=== PATIENT | male | born 1965 | race Caucasian/White ===

== ENCOUNTER 2017-01-03 16:54 | Inpatient (IN) ==
[2017-01-03] MEDS ORDERED: HYDROmorphone 2 MG/1 ML VIAL IV STA (17:29)
[2017-01-03] MEDS ORDERED: HYDROmorphone 2 MG/1 ML VIAL ONE (18:11)
[2017-01-03] MEDS ORDERED: SODIUM CHLORIDE 0.9% 1,000 ML IV STA (18:31)
[2017-01-03 18:40] LABS: Basophils % 0.2 % (0.0-0.8); Eosinophils # 0.1 10*3/uL (0.0-0.87); Eosinophils % 0.5 % (0.00-10.9); Hematocrit 48.6 VOL% (42.0-52.0); Hemoglobin 16.3 GM/DL (14.0-18.0); Immature Granulocytes % 0.5 %; Immature Granulocytes Absolute 0.06 #; Lymphocytes # 1.8 10*3/uL (1.4-4.0); Mean Corpuscular HGB Conc 33.5 GM/DL (32-36); Mean Corpuscular Hemoglobin 29 PG (27-34); Mean Platelet Volume 9.8 FL (9.6-12.0); Monocytes # 1.6 10*3/uL (0.11-0.8); Monocytes % 12.4 % (1.7-12.7); Neutrophils # 9.4 10*3/uL (1.4-7.4); Neutrophils % 72.4 % (38.7-73.9); Platelet Count 187 T/CUMM (130-400); Red Blood Count 5.65 MC/CUMM (3.8-5.5); Red Cell Distribution Width 13.2 % (9.3-17.3)
[2017-01-03 18:45] LABS: Apearance,Urine CLEAR (Clear); Bilirubin,Urine Negative (Negative); Blood, Urine Moderate mg/dL (Negative); Glucose,Urine (UA) Negative (Negative); Ketones,Urine 20 mg/dL (Negative); Mucus,Urine Few /LPF (Occasional); Nitrite,Urine Negative (Negative); Protein,Urine 100 MG/DL; RBC,Urine 3 /HPF (0-4); Urine Color Yellow (Yellow); Urine Urobilinogen < 2.0 EU/DL (0.2-1.0); WBC,Urine 1 /HPF (0-6)
[2017-01-03 18:58] LABS: Lactic Acid 1.1 MMOL/L (0.4-2.0)
[2017-01-03 19:11] LABS: Albumin 3.3 G/DL (3.4-5.0); Bilirubin,Total 1.4 MG/DL (0.2-1.0); Calcium 8.6 MG/DL (8.5-10.1); Osmolality,Calculated 275.7 MOS/KG (273-304); Potassium 3.9 MMOL/L (3.5-5.1); Total Protein 6.2 G/DL (6.4-8.3)
--- NOTE | 2017-01-03 19:56 | XRay Report ---
XR chest 1V portable Indication: Shortness of breath, wheezing Comparison: 01 August 2012 Findings: The heart and mediastinum are stable in size and configuration. The pulmonary vascularity is slightly increased with bilateral increased interstitial lung density. Linear densities seen in the left lung base. No other other lung infiltrates, effusions, pneumothorax or other abnormality is demonstrated. Impression: Findings suggest mild cardiac decompensation. Linear left lower lung density may indicate atelectasis. PROCEDURE INTERPRETED AT [facility] DEPARTMENT OF RADIOLOGY Final Report Signed by: Dr. Alvarado Mae
--- NOTE | 2017-01-03 20:16 | Hospitalist History & Physical ---
Assessment and Plan (1) Abdominal mass Status: Acute Assessment and plan: This is a newly discovered abdominal mass the patient did not know of it. Most likely is the cause of the abdominal pain and nausea and vomiting. He is to be neoplastic in nature. There is no description of fluid content tended to suspect possibility of pancreatic pseudocyst. Patient denies history of pancreatitis because there is associated thickening of the stomach wall gastroenterology be the primary source for consultation at this time. Should also be consulted to medical oncology. I strongly recommend that the CT disc from [facility] be accessible to our radiology department for secondary reading. Patient will be admitted to a monitored bed on medical floor Current Visit: Yes Qualifiers: Abdominal location: epigastric Qualified Code(s): R19.06 - Epigastric swelling, mass or lump (2) Pancreatitis Status: Acute Assessment and plan: This most likely is associated with some mastitis on CT scan. Patient does have quite elevated amylase at this point and has been vomiting. He will be put n.p.o. Start the patient on parenteral peripheral nutrition 55 mL/h. Repeat lipase tomorrow. Current Visit: Yes Qualifiers: Chronicity: acute Pancreatitis type: unspecified pancreatitis type Acute pancreatitis complication: unspecified Qualified Code(s): K85.90 - Acute pancreatitis without necrosis or infection, unspecified (3) Acute abdominal pain Status: Acute Assessment and plan: Patient will be put on Dilaudid 1 mg IV every 3 hours as needed. Attention to the patient's blood pressure response and vital signs response to this dosing. Assist the patient in the morning for adequacy of pain management. Current Visit: Yes (4) Smoking addiction Status: Acute Assessment and plan: I have discussed with the patient quitting. At this point is not in the mind to accept it. More counseling is definitely going to be necessary. Outcome of treatment with this malignancy may be affected by discontinue smoking. Current Visit: Yes (5) Hypertension Status: Acute Assessment and plan: Since he is not on any medication I will gingerly start him on amlodipine 5 mg daily. Avoid JESSI inhibitors in the face of pancreatitis. Reassess blood pressures along the way at least twice a shift. Current Visit: Yes History of Present Illness Chief complaint: Abdominal pain nausea vomiting shortness of breath History of present illness: Mr. Mitchell is a 51 year old male ith PMHx of HTN, who was transferred from [facility] for further evaluation of an Abd mass. Pt c/o of cramping Abd pain since 6 days and no BM since 12/31/2016. Pt states the pain radiates from the ribs to the back and is accompanied by Nausea. Pt received morphine at [facility] but did not help with pain. Pt denies hematochezia and dysuria. Pt reports tobacco 1 pack a day lately but he just smoked as much as 3 packs a day and had been smoking since age of 11; Occasional EtOH As regard to his hypertension he claims he is well controlled. Patient states that he is not taking medications because he voluntarily lost weight and since then his blood pressure has been good. Does acknowledge having had yellow eyes up to about last week. Denies any itching. Never had an abdominal pain until current events. No history of pancreatitis in the a.m. or in the family. Has had a history of ulcers which were treated years ago. He does seem to remember having had an infection associated with that. This is so because I specifically asked the question if there was H. pylori involved. Patient is not currently jaundiced. He is however with a cough that is nonproductive and there is some background wheezing. Allergies Allergy/AdvReac Type Severity Reaction Status Date / Time codeine Allergy Unknown/Unable Verified 01/03/17 17:08 to obtain Medical,Surgical,& Family Hx - Medical History Cardio: History of: Hypertension Gastrointestinal: History of: GI Problems (Because of disease in the past) - Family History Additional Family History: History of peptic ulcer disease in multiple members of the family. - Social History Smoking Status: Current every day smoker Frequency of Alcohol Use: None Type of Drug Use: None Review of systems: A 12 point system was attended to. Patient's review of systems significant for the chief complaint and past medical history. At this point he still having a lot of intra-abdominal pain especially periumbilical on the epigastrium. Has had some events of nausea he also noticed that his short winded he has a background wheeze though he does not have any history of asthma. EKG has been done has a nonspecific ST-T changes with his voltage criteria for left ventricular hypertrophy but patient also does have history of hypertension with an S4 gallop on auscultation as will be mentioned below Exam - Constitutional Vitals: Period Temp Pulse Resp BP Sys/Mathews Pulse Ox Last 24 Hr 97.6 F-97.6 F 118-127 18-18 150-164/101-111 91-96 General appearance: normal weight, no acute distress - Head Head exam: Present: normal inspection, normocephalic, atraumatic - Eye Eye exam: Present: EOMI, other (Anicteric sclera no conjunctival petechia) Pupils: Present: LARISA - ENT ENT exam: Present: normal exam, normal oropharynx - Neck Neck exam: Present: normal inspection, other (Supple no jugular venous distention no regional adenopathy in the neck or supraclavicular region) - Respiratory Respiratory exam: Present: other (Noted paroxysmal coughing with some wheezing in the background. There is no rales chest x-ray shows prominent blood vessels with some cephalization) - Cardiovascular Cardiovascular exam: Present: regular rate and rhythm, other (Presence of S4 gallop) - GI/Abdominal GI/Abdominal exam: Present: normal bowel sounds, soft, other (Tender to palpation especially in the epigastrium and periumbilical areas do not feel any adenopathy in the periumbilical area) - Extremities Exam Extremities exam: Present: full ROM - Back Exam Back exam: Present: normal inspection - Neurological Exam Neurological exam: Present: alert, oriented X3, CN II-XII intact - Psychiatric Psychiatric exam: Present: normal affect, normal mood - Skin Skin exam: Present: normal color, warm, dry Results - Labs CBC & BMP: 01/03/17 18:23 01/03/17 18:23 Lab Results: I have reviewed the past 24 hour labs (Patient has a lipase of 1294 most likely an element of pancreatitis he denied prior history of pancreatitis. Bilirubin of 1.4 transaminases are normal from the previous hospital white count of 15,072% neutrophils 14% lymphocytes he has a grown hemoglobin of 16.3 (smoker)) - EKG EKG shows: sinus rhythm (Rate is normal. Does have nonspecific ST-T abnormalities and suggestion of delayed ventricular repolarization..) - Diagnostic Findings Procedure: Chest x-ray: image reviewed by me (Prominent heart silhouette with cephalization of blood vessels), CT: report reviewed by me (CT scan shows a peripancreatic inflammatory changes. Most prominent proximally. Posterior wall of the stomach appears thickened. There is no abnormal acute abnormality of the liver gallbladder spleen there is asymmetric thickening of the left adrenal gland no hydronephrosis there are mildly dilated small bowel loops without visualized discrete transition site. Colonic diverticulosis is noted no evidence of appendicitis. No abdominal aortic aneurysm incidental finding of referred containing right inguinal hernia was also noted. There is also an incidental finding over a urinary bladder diverticulum. (The CT scan was done at [facility]).)
[2017-01-03] MEDS ORDERED: AMINO ACIDS/DEXT/LYTES 4.25-5% 2,000 ML IV SCH (21:00)
[2017-01-03] MEDS: HYDROmorphone 2 MG/1 ML VIAL IV PRN (21:03)
[2017-01-03] MEDS: amLODIPine 5 MG TABLET PO SCH (21:05)
[2017-01-03] MEDS: HEPARIN 5,000 UNIT/1 ML VIAL SUBCUT SCH (23:56)
[2017-01-04] MEDS: HYDROmorphone 2 MG/1 ML VIAL IV PRN ×6 (00:05→23:01)
[2017-01-04 05:41] LABS: Basophils % 0.4 % (0.0-0.8); Eosinophils # 0.2 10*3/uL (0.0-0.87); Hematocrit 46.3 VOL% (42.0-52.0); Hemoglobin 15.2 GM/DL (14.0-18.0); Immature Granulocytes % 0.3 %; Immature Granulocytes Absolute 0.02 #; Lymphocytes # 1.4 10*3/uL (1.4-4.0); Lymphocytes % 18.1 % (21.2-54.2); Mean Corpuscular HGB Conc 32.8 GM/DL (32-36); Mean Corpuscular Hemoglobin 28 PG (27-34); Mean Corpuscular Volume 85.3 FL (87-102); Mean Platelet Volume 10.3 FL (9.6-12.0); Monocytes # 1.4 10*3/uL (0.11-0.8); Monocytes % 18.2 % (1.7-12.7); Neutrophils # 4.7 10*3/uL (1.4-7.4); Platelet Count 173 T/CUMM (130-400); Red Blood Count 5.43 MC/CUMM (3.8-5.5); Red Cell Distribution Width 13.3 % (9.3-17.3); White Blood Count 7.7 T/CUMM (4-12)
[2017-01-04 06:03] LABS: Band Neutrophils 8 % (0-10); Eosinophils 2 % (0-10); Lymphocytes 19 % (20-55); Platelet Estimate Normal; Segmented Neutrophils 60 % (50-85); Total Cells Counted 100
[2017-01-04 06:04] LABS: Hypochromasia Slight
[2017-01-04] MEDS: HEPARIN 5,000 UNIT/1 ML VIAL SUBCUT SCH ×3 (06:09→20:14)
[2017-01-04 06:21] LABS: Albumin 2.9 G/DL (3.4-5.0); Bilirubin,Total 1.3 MG/DL (0.2-1.0); Calcium 8.1 MG/DL (8.5-10.1); Magnesium 2.4 MG/DL (1.8-2.4); Osmolality,Calculated 279.4 MOS/KG (273-304); Potassium 4.1 MMOL/L (3.5-5.1); Total Protein 5.7 G/DL (6.4-8.3)
--- NOTE | 2017-01-04 07:26 | EKG Report ---
Stationary ECG Study [facility] ER Test Date: 01/03/2017 7:23:20 PM Pat Name: GOVIND ZHU Department: Room: 218 Gender: M File Clerk Data Entry: NANCI : [id number] Requested by: Farrukh Gibbons Order Number: [id number] Reading MD: TAVO GUERRA Intervals [place] Rate: 118 P: 51 ND: 173 QRS: 4 QRSD: 100 T: 58 QT: 320 QTc: 390 Interpretive Statements SINUS TACHYCARDIA NONSPECIFIC T-WAVE ABNORMALITY Electronically Signed On 01-04-17 16:52:34 CDT by TAVO GUERRA [email or web address]
[2017-01-04] MEDS: PANTOPRAZOLE 40 MG VIAL IV SCH (08:59)
[2017-01-04] MEDS: amLODIPine 5 MG TABLET PO SCH (08:59)
--- NOTE | 2017-01-04 10:33 | Hospitalist Progress Note ---
Assessment and Plan - Time spent with patient Time spent with patient: Greater than 30 minutes (1) Abdominal mass Status: Acute Assessment and plan: CT done at [facility] revealed abdominal mass. GI and Oncology consulted. Current Visit: Yes Qualifiers: Abdominal location: epigastric Qualified Code(s): R19.06 - Epigastric swelling, mass or lump (2) Pancreatitis Status: Acute Assessment and plan: Patient was started on TPN yesterday by admitting physician. Lipase has reduced. Current Visit: Yes Qualifiers: Chronicity: acute Pancreatitis type: unspecified pancreatitis type Acute pancreatitis complication: unspecified Qualified Code(s): K85.90 - Acute pancreatitis without necrosis or infection, unspecified Hospitalist: Subjective Interval history: No complaints or overnight events. Exam - Constitutional Vitals: Period Temp Pulse Resp BP Sys/Mathews Pulse Ox Last 24 Hr 98.3 F-98.7 F 86-116 16-20 150-164/89-105 92-97 General appearance: normal weight, no acute distress - Head Head exam: Present: normocephalic, atraumatic - Eye Eye exam: Present: EOMI Pupils: Present: LARISA - ENT ENT exam: Present: normal exam - Neck Neck exam: Present: normal inspection - Respiratory Respiratory exam: Present: clear to auscultation bilaterally. Absent: accessory muscle use, prolonged expiratory phase, rhonchi, wheezes - Cardiovascular Cardiovascular exam: Present: regular rate and rhythm. Absent: gallop, rubs, systolic murmur - GI/Abdominal GI/Abdominal exam: Present: normal bowel sounds, soft. Absent: distended, firm , guarding, tenderness, rebound - Extremities Exam Extremities exam: Present: normal inspection. Absent: calf tenderness, edema Results - Labs CBC & BMP: 01/04/17 04:56 01/04/17 04:56 Lab Results: I have reviewed the past 24 hour labs
--- NOTE | 2017-01-04 14:29 | Gastrointestinal Consult Note ---
Assessment and Plan (1) Acute abdominal pain Status: Acute Assessment and plan: 01/04-sudden onset of abdominal pain with nausea/vomiting with findings at outside facility of questionable abdominal mass, unable to view any imaging/ reports. Elevated lipase levels now trending downward. Started on TPN. Bilirubin 1.3. Plan an addendum to followed by Dr. Peña. Current Visit: Yes History of Present Illness Chief complaint: Abdominal mass History of present illness: Mr. Mitchell is a 51 year old male who was admitted to the hospital with sudden onset of abdominal pain, nausea and vomiting. Patient states that on last he was not feeling very well had a sudden onset of intractable nausea and vomiting. He states that this lasted throughout the day however stopped just as suddenly as it started. He denies any coffee-ground or hematemesis associated with this. He reports that shortly after the nausea vomiting stopped , he had an onset of severe diffuse abdominal pain. He states the pain wavered in intensity and was severe at times and was not associated with any known factors. He states that he has not eaten anything since due to the nausea and vomiting followed by the pain. He he presented to [facility] for further evaluation at that time. He is reported to have a CT scan of the abdomen done at [facility] with findings that were reported as an abdominal mass. Patient states that he was told at the outside facility that it was actually a pancreatic mass. There is currently no films to review our reports from the CT noted in the database at present time. There is also no current imaging noted from our facility at this time. Patient denies any recent weight loss, fever, chills, or are night sweats. He denies any recent melena or hematochezia. Patient was found to have a lipase level of 1294 on admission. He states he has no prior history of pancreatitis in the past. He denies any routine alcohol use and states that he has only socially used alcohol but not very often in the past. He smokes a pack of cigarettes every other day. He has started smoking when he was 11 years old and until recently smoked 3-4 packs a day. Patient states he has not had a bowel movement since . His lipase is trended down today at 560 today when he was started on TPN on admission. Bilirubin noted at 1.3 with normal transaminases. CEA noted to be negative. Patient has a history of endoscopy in the past, years ago, by Dr. Kim with history of PUD. Oncology was noted to be consulted on admission. Home Medications Medication Instructions Recorded Confirmed Type No Known Home Medications [No 01/04/17 01/04/17 History Known Home Medications] Allergies Allergy/AdvReac Type Severity Reaction Status Date / Time codeine Allergy Unknown/Unable Verified 01/03/17 17:08 to obtain Medical,Surgical,& Family Hx - Medical History Cardio: History of: Hypertension Gastrointestinal: History of: GI Problems (Because of disease in the past) - Social History Smoking Status: Current every day smoker Frequency of Alcohol Use: None Type of Drug Use: None 12 point system: reviewed and no additional remarkable complaints except as stated - Constitutional Constitutional: Present: as per HPI - EENT Eyes: Present: as per HPI Ears: Present: as per HPI Nose, mouth and throat: Present: as per HPI - Cardiovascular Cardiovascular: Present: as per HPI - Respiratory Respiratory: Present: as per HPI - Gastrointestinal Gastrointestinal: Present: as per HPI, abdominal pain, nausea, vomiting - Genitourinary Genitourinary: Present: as per HPI - Musculoskeletal Musculoskeletal: Present: as per HPI - Neurological Neurological: Present: as per HPI - Psychiatric Psychiatric: Present: as per HPI - Endocrine Endocrine: Present: as per HPI - Hematologic/Lymphatic Hematologic/Lymphatic: Present: as per HPI Exam - Constitutional Vitals: Period Temp Pulse Resp BP Sys/Mathews Pulse Ox Last 24 Hr 98.3 F-98.7 F 86-116 16-20 138-164/88-105 92-97 General appearance: normal weight, no acute distress - Head Head exam: Present: normal inspection, normocephalic - Eye Eye exam: Present: other (Lids and conjunctive are unremarkable). Absent: scleral icterus - ENT ENT exam: Present: normal exam, normal oropharynx - Neck Neck exam: Present: normal inspection - Respiratory Respiratory exam: Present: clear to auscultation bilaterally. Absent: rales, rhonchi, wheezes - Cardiovascular Cardiovascular exam: Present: regular rate and rhythm. Absent: diastolic murmur , JVD, systolic murmur - GI/Abdominal GI/Abdominal exam: Present: normal bowel sounds, tenderness (Upper quadrant, mostly left upper quadrant), soft. Absent: ascites, distended, mass, organomegaly - Extremities Exam Extremities exam: Present: normal inspection, full ROM - Back Exam Back exam: Present: normal inspection - Neurological Exam Neurological exam: Present: alert, oriented X3 - Psychiatric Psychiatric exam: Present: normal affect, normal mood - Skin Skin exam: Present: normal color, warm, dry Results - Labs CBC & BMP: 01/04/17 04:56 01/04/17 04:56 Lab Results: I have reviewed the past 24 hour labs
[2017-01-04 14:51] LABS: Cancer Antigen 19-9 31.5 U/ML (0-37)
--- NOTE | 2017-01-04 16:14 | Oncology Consult Note ---
Assessment and Plan - Time spent with patient Time spent with patient: Greater than 30 minutes (1) Abdominal mass Status: Acute Assessment and plan: I will order an IV and p.o. contrasted CT of the abdomen and pelvis for complete workup. He will likely also need upper endoscopy by GI at some point in the near future. I will follow the results of the scan and GIs evaluation and make further recommendations at that time. Current Visit: Yes Qualifiers: Abdominal location: epigastric Qualified Code(s): R19.06 - Epigastric swelling, mass or lump (2) Pancreatitis Status: Acute Current Visit: Yes Qualifiers: Chronicity: acute Pancreatitis type: unspecified pancreatitis type Acute pancreatitis complication: unspecified Qualified Code(s): K85.90 - Acute pancreatitis without necrosis or infection, unspecified (3) Acute abdominal pain Status: Acute Current Visit: Yes History of Present Illness History of present illness: Mr. Mitchell is a 51 year old male who was transferred from [facility] after presenting with diffuse abdominal pain with a CT scan showing a questionable gastric mass. The gastric mass arises from the posterior antrum. There is also some mention of pancreatitis with inflammation in the area between the pancreas and the stomach. The CT scan was done without IV contrast. He does have an elevated lipase. CEA, CA-19-9, and alpha- fetoprotein are all within normal limits. GI has seen him. His main complaint is diffuse abdominal pain. I explained to him that we need to do a contrasted CT scan along with upper endoscopy. We get then make better recommendations once the initial workup is done. Home Medications Medication Instructions Recorded Confirmed Type No Known Home Medications [No 01/04/17 01/04/17 History Known Home Medications] Allergies Allergy/AdvReac Type Severity Reaction Status Date / Time codeine Allergy Unknown/Unable Verified 01/03/17 17:08 to obtain Medical,Surgical,& Family Hx - Medical History Cardio: History of: Hypertension Gastrointestinal: History of: GI Problems (Because of disease in the past) - Social History Smoking Status: Current every day smoker Frequency of Alcohol Use: None Type of Drug Use: None 12 point system: reviewed and no additional remarkable complaints except as stated - Constitutional Constitutional: Absent: fatigue, fever(s), malaise, weakness - Gastrointestinal Gastrointestinal: Present: abdominal pain, early satiety, nausea Exam - Constitutional Vitals: Period Temp Pulse Resp BP Sys/Mathews Pulse Ox Last 24 Hr 98.3 F-98.7 F 86-116 16-20 128-164/76-105 92-97 General appearance: normal weight, no acute distress - Head Head Exam: Present: normocephalic - Eye Eye Exam: Present: EOMI Pupils: Present: PERRL - Neck Neck exam: Absent: lymphadenopathy, thyromegaly - Respiratory Respiratory exam: Present: CTAB. Absent: wheezes - Cardiovascular Cardiovascular exam: Present: RRR. Absent: irregular rhythm, JVD - GI/Abdominal GI/Abdominal exam: Present: tenderness, soft. Absent: ascites, distended, firm , mass - Neurological Exam Neurological exam: Present: alert, oriented X3 - Psychiatric Psychiatric exam: Present: normal affect, normal mood - Skin Skin exam: Present: warm, dry Results - Labs CBC & BMP: 01/04/17 04:56 01/04/17 04:56 Lab Results: I have reviewed the past 24 hour labs - Diagnostic Findings Procedure: CT Abdomen and Pelvis: report reviewed by me
--- NOTE | 2017-01-04 19:43 | CT Report ---
CT abdomen pelvis Indication: Gastric mass Comparison: 03 Jan 2017 Technique: Axial CT imaging of the abdomen and pelvis is performed with intravenous and oral contrast. Contrast dose is 100 cc of Omnipaque 350. Findings: Cardiac and lung bases are within normal limits CT abdomen: The liver spleen and adrenal glands are normal in size and enhancement. No evidence of focal lesion is demonstrated in these solid organs. There is fluid and stranding around the aorta body of the pancreas and in the lesser sac Simple appearing renal cyst are present similar previous CT that do not enhance. Otherwise the are normal in size and enhancement. No evidence of hydronephrosis or nephrolithiasis is seen. The bowel caliber is normal and no wall thickening or adjacent inflammatory change is seen. No evidence of free fluid or free air is present. Appendix appears normal. CT pelvis: Multiple diverticula are present in the sigmoid colon without evidence of diverticulitis pelvic bowel appears within normal limits. Bladder shows no evidence of abnormality. The pelvic organs show no evidence of abnormality Impression: Fluid and stranding around the pancreas body with fluid in the lesser sac, likely pancreatitis and developing pseudocysts. No distinct mass is identified. This CT exam was performed using one or more the following dose reduction techniques: Automated exposure control, adjustment of the MA and/or KV according to patient size, or use of iterative reconstruction technique. PROCEDURE INTERPRETED AT [facility] DEPARTMENT OF RADIOLOGY Final Report Signed by: Dr. Alvarado Mae
[2017-01-05] MEDS: HYDROmorphone 2 MG/1 ML VIAL IV PRN ×7 (02:19→23:53)
[2017-01-05] MEDS: HEPARIN 5,000 UNIT/1 ML VIAL SUBCUT SCH ×3 (04:39→20:30)
[2017-01-05 05:34] LABS: AFP Tumor < 1.3 NG/ML (0-8); Prostate Specific Antigen Diag 0.5 NG/ML (0-4)
[2017-01-05 05:47] LABS: Basophils % 0.2 % (0.0-0.8); Eosinophils # 0.2 10*3/uL (0.0-0.87); Eosinophils % 2.6 % (0.00-10.9); Hematocrit 44.9 VOL% (42.0-52.0); Hemoglobin 14.9 GM/DL (14.0-18.0); Immature Granulocytes % 0.2 %; Immature Granulocytes Absolute 0.02 #; Lymphocytes # 2.1 10*3/uL (1.4-4.0); Lymphocytes % 24.8 % (21.2-54.2); Mean Corpuscular HGB Conc 33.2 GM/DL (32-36); Mean Corpuscular Hemoglobin 28 PG (27-34); Mean Platelet Volume 10.3 FL (9.6-12.0); Monocytes # 1.2 10*3/uL (0.11-0.8); Monocytes % 13.9 % (1.7-12.7); Neutrophils # 4.9 10*3/uL (1.4-7.4); Neutrophils % 58.3 % (38.7-73.9); Platelet Count 225 T/CUMM (130-400); Red Blood Count 5.28 MC/CUMM (3.8-5.5); White Blood Count 8.5 T/CUMM (4-12)
[2017-01-05 06:16] LABS: Calcium 8.6 MG/DL (8.5-10.1); Osmolality,Calculated 277.5 MOS/KG (273-304); Potassium 4.3 MMOL/L (3.5-5.1)
--- NOTE | 2017-01-05 08:06 | Oncology Progress Note ---
Assessment and Plan (1) Pancreatitis Status: Acute Current Visit: Yes Qualifiers: Chronicity: acute Pancreatitis type: unspecified pancreatitis type Acute pancreatitis complication: unspecified Qualified Code(s): K85.90 - Acute pancreatitis without necrosis or infection, unspecified (2) Acute abdominal pain Status: Acute Current Visit: Yes Oncology Subjective PN Interval history: Mr. Mitchell's contrasted CT yesterday showed no evidence of a gastric or abdominal mass. There was pancreatic inflammation with likely pseudocyst identified. There is no further need for oncology workup. I will defer the question about the need for evaluation with EGD to GI. I will sign off for now. Please call me if there are any questions. Exam - Constitutional Vitals: Period Temp Pulse Resp BP Sys/Mathews Pulse Ox Last 24 Hr 96.9 F-99.2 F 102-112 18-20 128-148/76-87 96-97 Results - Labs CBC & BMP: 01/05/17 05:13 01/05/17 05:13 Lab Results: I have reviewed the past 24 hour labs
[2017-01-05] MEDS: PANTOPRAZOLE 40 MG VIAL IV SCH (08:39)
--- NOTE | 2017-01-05 09:44 | Hospitalist Progress Note ---
Assessment and Plan - Time spent with patient Time spent with patient: Greater than 30 minutes (1) Pancreatitis Status: Acute Assessment and plan: Lipase increased today. Mild low grade fevers from pancreatitis. Start fluids, increase pain meds and add phenergan. CT abdomen revealed a pancreatic pseudocyst. Obtain RUQ US and Lipid panel/ Current Visit: Yes Qualifiers: Chronicity: acute Pancreatitis type: unspecified pancreatitis type Acute pancreatitis complication: unspecified Qualified Code(s): K85.90 - Acute pancreatitis without necrosis or infection, unspecified Hospitalist: Subjective Interval history: Complains of continued abdominal pain, diffuse and crampy radiating to the back. N/V. Exam - Constitutional Vitals: Period Temp Pulse Resp BP Sys/Mathews Pulse Ox Last 24 Hr 96.9 F-99.2 F 102-112 18-20 128-148/76-87 96-97 General appearance: no acute distress - Head Head exam: Present: normocephalic, atraumatic - Eye Eye exam: Present: EOMI Pupils: Present: LARISA - ENT ENT exam: Present: normal exam - Neck Neck exam: Present: normal inspection - Respiratory Respiratory exam: Present: clear to auscultation bilaterally. Absent: rhonchi, wheezes - Cardiovascular Cardiovascular exam: Present: regular rate and rhythm. Absent: gallop, rubs, systolic murmur - GI/Abdominal GI/Abdominal exam: Present: normal bowel sounds, soft. Absent: distended, firm , guarding, tenderness, rebound - Extremities Exam Extremities exam: Present: normal inspection. Absent: calf tenderness, edema Results - Labs CBC & BMP: 01/05/17 05:13 01/05/17 05:13 Lab Results: I have reviewed the past 24 hour labs
[2017-01-05 10:12] LABS: Risk Ratio 3.36; VLDL CHOLESTEROL 19.4 MG/DL
--- NOTE | 2017-01-05 10:32 | Gastrointestinal Progress Note ---
Assessment and Plan (1) Acute abdominal pain Status: Acute Assessment and plan: 01/05-Abd pain increased today. Lipase levels increase today at 1347. Afebrile. CT findings noted of pancreatitis/possible pseudocyst. Plan and addendum to follow by Dr Peña. 01/04-sudden onset of abdominal pain with nausea/vomiting with findings at outside facility of questionable abdominal mass, unable to view any imaging/ reports. Elevated lipase levels now trending downward. Started on TPN. Bilirubin 1.3. Plan an addendum to followed by Dr. Peña. Current Visit: Yes Gastroenterology - PN: Subj Interval history: CC: Abdominal pain Patient is seen awake and alert sitting up in chair. States he is not feeling well this morning. Complaining of increased abdominal pain radiating to his back. Denies any nausea or vomiting at present time. Patient is afebrile with no leukocytosis noted at this time. Lipase is elevated at 1347. Findings on contrasted CT scan noted with fluid and stranding around pancreas body with fluid in the lesser sac with possible developing pseudocyst and no distinct mass seen. Multiple diverticuli in sigmoid colon as well. His TPN is noted to be discontinued last night and remains discontinued this morning. He is to have IV fluids restarted today and he is far abdominal ultrasound as well as lipid panel pending at present time. Abdomen is soft, tender to palpation. ROS: Denies shortness of breath or chest pain Exam (Progress Note) - Constitutional Vitals: Period Temp Pulse Resp BP Sys/Mathews Pulse Ox Last 24 Hr 96.9 F-99.2 F 102-112 18-20 128-148/76-89 96-97 - Other Additional findings: General appearance: normal weight, no acute distress - Head Head exam: Present: normal inspection, normocephalic - Eye Eye exam: Present: other (Lids and conjunctive are unremarkable). Absent: scleral icterus - ENT ENT exam: Present: normal exam, normal oropharynx - Neck Neck exam: Present: normal inspection - Respiratory Respiratory exam: Present: clear to auscultation bilaterally. Absent: rales, rhonchi, wheezes - Cardiovascular Cardiovascular exam: Present: regular rate and rhythm. Absent: diastolic murmur , JVD, systolic murmur - GI/Abdominal GI/Abdominal exam: Present: normal bowel sounds, tenderness (Upper quadrant, mostly left upper quadrant), soft. Absent: ascites, distended, mass, organomegaly - Extremities Exam Extremities exam: Present: normal inspection, full ROM - Back Exam Back exam: Present: normal inspection - Neurological Exam Neurological exam: Present: alert, oriented X3 - Psychiatric Psychiatric exam: Present: normal affect, normal mood - Skin Skin exam: Present: normal color, warm, dry Results - Labs CBC & BMP: 01/05/17 05:13 01/05/17 05:13 Lab Results: I have reviewed the past 24 hour labs - Diagnostic Findings Procedure: CT Abdomen and Pelvis: report reviewed by me
[2017-01-05] MEDS: SODIUM CHLORIDE 0.45% 1,000 ML IV SCH ×5 (11:16→23:52)
[2017-01-05] MEDS: PROMETHAZINE INJ 12.5 MG in SODIUM CHLORIDE 0.9% 50 ML IV PRN ×2 (11:25→20:30)
--- NOTE | 2017-01-05 12:59 | Ultrasound Report ---
Exam: US right upper quadrant Date:01/05/2017 9:45 AM Indication: Pancreatitis Comparison: None Findings: Liver: Fatty infiltration of liver is present. The liver measuring approximate 17 cm. No focal abnormalities are present. The hepatic and portal veins are patent. Gallbladder: Normal size shape and configuration without stones CBD: 6 mm Pancreas: Poorly visualized Kidneys Right kidney: 11.8 x 6.2 x 5.5 cm. There is a 2.9 x 2.8 x 3.3 cm cyst in the midpole the right kidney. Left kidney: Not evaluated Aorta IVC: No obvious aneurysm. IVC is patent. Spleen: Not evaluated Ascites: None Impression: 1. Mild fatty infiltration of the liver 2. Simple cyst of the right kidney measuring 2.9 cm. Ultrasound images were stored and captured PROCEDURE INTERPRETED AT [facility] DEPARTMENT OF RADIOLOGY Final Report Signed by: Dr. Stew Diehl
[2017-01-05] MEDS: amLODIPine 5 MG TABLET PO SCH (14:28)
[2017-01-06] MEDS: HYDROmorphone 2 MG/1 ML VIAL IV PRN ×4 (03:06→12:26)
[2017-01-06] MEDS: SODIUM CHLORIDE 0.45% 1,000 ML IV SCH ×3 (03:07→20:08)
[2017-01-06] MEDS: HEPARIN 5,000 UNIT/1 ML VIAL SUBCUT SCH ×3 (06:14→20:07)
[2017-01-06] MEDS: amLODIPine 5 MG TABLET PO SCH (09:21)
[2017-01-06] MEDS: PANTOPRAZOLE 40 MG VIAL IV SCH (09:21)
[2017-01-06] MEDS: PROMETHAZINE INJ 12.5 MG in SODIUM CHLORIDE 0.9% 50 ML IV PRN (09:22)
--- NOTE | 2017-01-06 10:16 | Hospitalist Progress Note ---
Assessment and Plan - Time spent with patient Time spent with patient: Greater than 30 minutes (1) Pancreatitis Status: Acute Assessment and plan: Triglycerides and right upper quadrant unremarkable. Lipase improved today. Continue fluids. N.p.o. Defer change in management to GI. Appreciate their assistance. Current Visit: Yes Qualifiers: Chronicity: acute Pancreatitis type: unspecified pancreatitis type Acute pancreatitis complication: unspecified Qualified Code(s): K85.90 - Acute pancreatitis without necrosis or infection, unspecified Hospitalist: Subjective Interval history: Reports continued pain. States he feels bad however looks much more comfortable. Patient apparently leaves the floor and smokes downstairs. Exam - Constitutional Vitals: Period Temp Pulse Resp BP Sys/Mathews Pulse Ox Last 24 Hr 96.3 F-98.3 F 97-105 18-20 141-166/85-96 95-98 General appearance: no acute distress - Head Head exam: Present: normocephalic, atraumatic - Eye Eye exam: Present: EOMI Pupils: Present: LARISA - ENT ENT exam: Present: normal exam - Neck Neck exam: Present: normal inspection - Respiratory Respiratory exam: Present: clear to auscultation bilaterally. Absent: rhonchi, wheezes - Cardiovascular Cardiovascular exam: Present: regular rate and rhythm. Absent: gallop, rubs, systolic murmur - GI/Abdominal GI/Abdominal exam: Present: normal bowel sounds, tenderness, soft. Absent: distended, firm, guarding, rebound - Extremities Exam Extremities exam: Present: normal inspection. Absent: calf tenderness, edema Results - Labs CBC & BMP: 01/05/17 05:13 01/05/17 05:13 Lab Results: I have reviewed the past 24 hour labs
--- NOTE | 2017-01-06 10:59 | Gastrointestinal Progress Note ---
Assessment and Plan (1) Acute abdominal pain Status: Acute Assessment and plan: 01/06-Continued abd pain, denies nausea or vomiting. Lipase 1102. Afebrile. Plan and addendum to follow by DR Peña. 01/05-Abd pain increased today. Lipase levels increase today at 1347. Afebrile. CT findings noted of pancreatitis/possible pseudocyst. Plan and addendum to follow by Dr Peña. 01/04-sudden onset of abdominal pain with nausea/vomiting with findings at outside facility of questionable abdominal mass, unable to view any imaging/ reports. Elevated lipase levels now trending downward. Started on TPN. Bilirubin 1.3. Plan an addendum to followed by Dr. Peña. Current Visit: Yes Gastroenterology - PN: Subj Interval history: CC: Pancreatitis Pt is seen, awake and alert sitting on side of bed. States he is feeling about the same at this time. States that his abdominal pain is continuing and has not had very much relief at times. He denies any nausea or vomiting. Denies any fever or chills. He is taking in sips of water and ice chips. Lipase is noted at 1102. Abdomen is soft, tender to palpation. ROS: Denies SOB or chest pain Exam (Progress Note) - Constitutional Vitals: Period Temp Pulse Resp BP Sys/Mathews Pulse Ox Last 24 Hr 96.3 F-98.3 F 97-105 18-20 141-166/85-96 95-98 - Other Additional findings: General appearance: normal weight, no acute distress - Head Head exam: Present: normal inspection, normocephalic - Eye Eye exam: Present: other (Lids and conjunctive are unremarkable). Absent: scleral icterus - ENT ENT exam: Present: normal exam, normal oropharynx - Neck Neck exam: Present: normal inspection - Respiratory Respiratory exam: Present: clear to auscultation bilaterally. Absent: rales, rhonchi, wheezes - Cardiovascular Cardiovascular exam: Present: regular rate and rhythm. Absent: diastolic murmur , JVD, systolic murmur - GI/Abdominal GI/Abdominal exam: Present: normal bowel sounds, tenderness (Upper quadrant, mostly left upper quadrant), soft. Absent: ascites, distended, mass, organomegaly - Extremities Exam Extremities exam: Present: normal inspection, full ROM - Back Exam Back exam: Present: normal inspection - Neurological Exam Neurological exam: Present: alert, oriented X3 - Psychiatric Psychiatric exam: Present: normal affect, normal mood - Skin Skin exam: Present: normal color, warm, dry Results - Labs CBC & BMP: 01/05/17 05:13 01/05/17 05:13 Lab Results: I have reviewed the past 24 hour labs
[2017-01-06] MEDS: MEPERIDINE 50 MG/1 ML VIAL IV PRN ×2 (15:44→20:07)
[2017-01-07] MEDS: MEPERIDINE 50 MG/1 ML VIAL IV PRN ×5 (00:42→19:49)
[2017-01-07] MEDS: PROMETHAZINE INJ 12.5 MG in SODIUM CHLORIDE 0.9% 50 ML IV PRN (00:42)
[2017-01-07] MEDS: SODIUM CHLORIDE 0.45% 1,000 ML IV SCH ×5 (00:49→19:50)
[2017-01-07] MEDS: HEPARIN 5,000 UNIT/1 ML VIAL SUBCUT SCH ×3 (04:49→20:05)
[2017-01-07] MEDS: PANTOPRAZOLE 40 MG VIAL IV SCH (09:38)
[2017-01-07] MEDS: amLODIPine 5 MG TABLET PO SCH (09:38)
--- NOTE | 2017-01-07 10:23 | Hospitalist Progress Note ---
Assessment and Plan - Time spent with patient Time spent with patient: Greater than 30 minutes (1) Pancreatitis Status: Acute Assessment and plan: Continue fluids. Defer change in management to GI. Appreciate their assistance. Current Visit: Yes Qualifiers: Chronicity: acute Pancreatitis type: unspecified pancreatitis type Acute pancreatitis complication: unspecified Qualified Code(s): K85.90 - Acute pancreatitis without necrosis or infection, unspecified Hospitalist: Subjective Interval history: Reports continued abdominal pain. Exam - Constitutional Vitals: Period Temp Pulse Resp BP Sys/Mathews Pulse Ox Last 24 Hr 98.0 F-98.5 F 93-101 18-101 128-161/69-92 94-100 General appearance: no acute distress - Head Head exam: Present: normocephalic, atraumatic - Eye Eye exam: Present: EOMI Pupils: Present: LARISA - ENT ENT exam: Present: normal exam - Neck Neck exam: Present: normal inspection - Respiratory Respiratory exam: Present: clear to auscultation bilaterally. Absent: rhonchi, wheezes - Cardiovascular Cardiovascular exam: Present: regular rate and rhythm. Absent: gallop, rubs, systolic murmur - GI/Abdominal GI/Abdominal exam: Present: normal bowel sounds, tenderness, soft. Absent: distended, firm, guarding, rebound - Extremities Exam Extremities exam: Present: normal inspection. Absent: calf tenderness, edema Results - Labs CBC & BMP: 01/05/17 05:13 01/05/17 05:13 Lab Results: I have reviewed the past 24 hour labs
--- NOTE | 2017-01-07 11:11 | Gastrointestinal Progress Note ---
Assessment and Plan (1) Acute abdominal pain Status: Acute Assessment and plan: 01/07-no changes in abdominal pain. Requiring analgesics continually around the clock. No nausea or vomiting. Recheck CBC and lipase tomorrow. Plan an addendum to follow Dr. Peña 01/06-Continued abd pain, denies nausea or vomiting. Lipase 1102. Afebrile. Plan and addendum to follow by DR Peña. 01/05-Abd pain increased today. Lipase levels increase today at 1347. Afebrile. CT findings noted of pancreatitis/possible pseudocyst. Plan and addendum to follow by Dr Peña. 01/04-sudden onset of abdominal pain with nausea/vomiting with findings at outside facility of questionable abdominal mass, unable to view any imaging/ reports. Elevated lipase levels now trending downward. Started on TPN. Bilirubin 1.3. Plan an addendum to followed by Dr. Peña. Current Visit: Yes Gastroenterology - PN: Subj Interval history: CC: Pancreatitis Patient is seen awake and alert lying in bed. States he is feeling about the same. He is to continue to require pain medication around the clock. He is requesting to eat however discussed with patient that eating will intensify his pain level and with his continued amount of pain and requirements for analgesics will need to continue his n.p.o. status at this time. Reassured him he is receiving hydration through his IV fluids. Denies any nausea or vomiting. Afebrile. Abdomen is soft, tender to palpation. ROS: Denies shortness of breath or chest pain Exam (Progress Note) - Constitutional Vitals: Period Temp Pulse Resp BP Sys/Mathews Pulse Ox Last 24 Hr 98.0 F-98.5 F 93-101 18-101 128-161/69-92 94-100 - Other Additional findings: General appearance: normal weight, no acute distress - Head Head exam: Present: normal inspection, normocephalic - Eye Eye exam: Present: other (Lids and conjunctive are unremarkable). Absent: scleral icterus - ENT ENT exam: Present: normal exam, normal oropharynx - Neck Neck exam: Present: normal inspection - Respiratory Respiratory exam: Present: clear to auscultation bilaterally. Absent: rales, rhonchi, wheezes - Cardiovascular Cardiovascular exam: Present: regular rate and rhythm. Absent: diastolic murmur , JVD, systolic murmur - GI/Abdominal GI/Abdominal exam: Present: normal bowel sounds, tenderness (Upper quadrant, mostly left upper quadrant), soft. Absent: ascites, distended, mass, organomegaly - Extremities Exam Extremities exam: Present: normal inspection, full ROM - Back Exam Back exam: Present: normal inspection - Neurological Exam Neurological exam: Present: alert, oriented X3 - Psychiatric Psychiatric exam: Present: normal affect, normal mood - Skin Skin exam: Present: normal color, warm, dry Results - Labs CBC & BMP: 01/05/17 05:13 01/05/17 05:13 Lab Results: I have reviewed the past 24 hour labs
--- NOTE | 2017-01-07 11:47 | Gastrointestinal Consult Note ---
Assessment and Plan (1) Acute abdominal pain Status: Acute Assessment and plan: 01/07-no changes in abdominal pain. Requiring analgesics continually around the clock. No nausea or vomiting. Recheck CBC and lipase tomorrow. Plan an addendum to follow Dr. Peña 01/06-Continued abd pain, denies nausea or vomiting. Lipase 1102. Afebrile. Plan and addendum to follow by DR Peña. 01/05-Abd pain increased today. Lipase levels increase today at 1347. Afebrile. CT findings noted of pancreatitis/possible pseudocyst. Plan and addendum to follow by Dr Peña. 01/04-sudden onset of abdominal pain with nausea/vomiting with findings at outside facility of questionable abdominal mass, unable to view any imaging/ reports. Elevated lipase levels now trending downward. Started on TPN. Bilirubin 1.3. Plan an addendum to followed by Dr. Peña. Current Visit: Yes History of Present Illness Chief complaint: SOB and ascites History of present illness: Mr. Mitchell is a 51 year old male who presented to the hospital with increased SOB and complaints of ascites. Pt is a fair historian therefore information also obtained from chart review. He has a history of hepatitis C, liver cancer , DM, HTN, CHF. Pt states that approximately 3 days ago he had onset of increased SOB. He states that he also had increased fatigue and generally not feeling well. He complained of some abdominal distention as well. He has a history of heavy alcohol use as well as cigarette use however states he did cut back on his intake in August. Pt is seen at the [facility]. He states that in October he was seen at [facility] and had a liver biopsy done which was returned as hepatocellular carcinoma. He reports that he had some type of laser surgery on his liver following diagnosis but cannot recall any details. He also states he took three injections in the past for his Hepatitis C. He was found on admission to be mildly hypotensive and tachycardic and admitted to the ICU for further observation. He was also noted to have elevated bilirubin and AST/ALT as well as ascites. Home Medications Medication Instructions Recorded Confirmed Type No Known Home Medications [No 01/04/17 01/04/17 History Known Home Medications] Allergies Allergy/AdvReac Type Severity Reaction Status Date / Time codeine Allergy Unknown/Unable Verified 01/03/17 17:08 to obtain Medical,Surgical,& Family Hx - Medical History Cardio: History of: Hypertension Gastrointestinal: History of: GI Problems (Because of disease in the past) - Social History Smoking Status: Current every day smoker Frequency of Alcohol Use: None Type of Drug Use: None Exam - Constitutional Vitals: Period Temp Pulse Resp BP Sys/Mathews Pulse Ox Last 24 Hr 98.0 F-98.5 F 93-101 18-101 128-161/69-92 94-100 Results - Labs CBC & BMP: 01/05/17 05:13 01/05/17 05:13
[2017-01-08] MEDS: MEPERIDINE 50 MG/1 ML VIAL IV PRN (00:07)
[2017-01-08] MEDS: SODIUM CHLORIDE 0.45% 1,000 ML IV SCH ×7 (00:09→23:55)
[2017-01-08 04:45] LABS: Basophils % 0.2 % (0.0-0.8); Eosinophils # 0.2 10*3/uL (0.0-0.87); Eosinophils % 2.6 % (0.00-10.9); Hematocrit 43.4 VOL% (42.0-52.0); Hemoglobin 14.7 GM/DL (14.0-18.0); Immature Granulocytes % 0.5 %; Immature Granulocytes Absolute 0.04 #; Lymphocytes # 2.3 10*3/uL (1.4-4.0); Lymphocytes % 26.6 % (21.2-54.2); Mean Corpuscular HGB Conc 33.9 GM/DL (32-36); Mean Corpuscular Hemoglobin 28 PG (27-34); Mean Corpuscular Volume 83.8 FL (87-102); Mean Platelet Volume 9.5 FL (9.6-12.0); Monocytes % 11.6 % (1.7-12.7); Neutrophils # 5.1 10*3/uL (1.4-7.4); Neutrophils % 58.5 % (38.7-73.9); Platelet Count 251 T/CUMM (130-400); Red Blood Count 5.18 MC/CUMM (3.8-5.5); Red Cell Distribution Width 12.6 % (9.3-17.3); White Blood Count 8.8 T/CUMM (4-12)
[2017-01-08] MEDS: MEPERIDINE 25 MG/1 ML VIAL IV PRN ×4 (04:58→20:35)
[2017-01-08] MEDS: HEPARIN 5,000 UNIT/1 ML VIAL SUBCUT SCH ×3 (04:59→20:38)
[2017-01-08 05:11] LABS: Platelet Estimate Normal
[2017-01-08 05:29] LABS: Calcium 8.6 MG/DL (8.5-10.1); Osmolality,Calculated 278.3 MOS/KG (273-304); Potassium 4.1 MMOL/L (3.5-5.1)
[2017-01-08] MEDS: PANTOPRAZOLE 40 MG VIAL IV SCH (09:15)
[2017-01-08] MEDS: amLODIPine 5 MG TABLET PO SCH (09:15)
--- NOTE | 2017-01-08 10:18 | Gastrointestinal Progress Note ---
Assessment and Plan (1) Acute abdominal pain Status: Acute Assessment and plan: 01/08-abdominal pain improved. No nausea vomiting. Requiring less analgesics at present time. Tolerating clear liquid diet. Lipase down at 320. Advance to full liquids. Plan an addendum will follow by Dr. Peña. 01/07-no changes in abdominal pain. Requiring analgesics continually around the clock. No nausea or vomiting. Recheck CBC and lipase tomorrow. Plan an addendum to follow Dr. Peña 01/06-Continued abd pain, denies nausea or vomiting. Lipase 1102. Afebrile. Plan and addendum to follow by DR Peña. 01/05-Abd pain increased today. Lipase levels increase today at 1347. Afebrile. CT findings noted of pancreatitis/possible pseudocyst. Plan and addendum to follow by Dr Peña. 01/04-sudden onset of abdominal pain with nausea/vomiting with findings at outside facility of questionable abdominal mass, unable to view any imaging/ reports. Elevated lipase levels now trending downward. Started on TPN. Bilirubin 1.3. Plan an addendum to followed by Dr. Peña. Current Visit: Yes Gastroenterology - PN: Subj Interval history: CC: Abdominal pain/pancreatitis Patient is seen awake alert sitting up in bed. States he is feeling better today and is not requiring as much pain medication at this time. Lipase levels are noted to trend down to 320. He denies any nausea or vomiting. States his abdominal pain is more controlled and does not seem to be associated with eating at this time. Abdomen soft, mild tenderness. Afebrile without leukocytosis. ROS: Denies shortness of breath or chest pain Exam (Progress Note) - Constitutional Vitals: Period Temp Pulse Resp BP Sys/Mathews Pulse Ox Last 24 Hr 97.1 F-98.7 F 90-106 17-20 131-142/91-95 95-98 - Other Additional findings: General appearance: normal weight, no acute distress - Head Head exam: Present: normal inspection, normocephalic - Eye Eye exam: Present: other (Lids and conjunctive are unremarkable). Absent: scleral icterus - ENT ENT exam: Present: normal exam, normal oropharynx - Neck Neck exam: Present: normal inspection - Respiratory Respiratory exam: Present: clear to auscultation bilaterally. Absent: rales, rhonchi, wheezes - Cardiovascular Cardiovascular exam: Present: regular rate and rhythm. Absent: diastolic murmur , JVD, systolic murmur - GI/Abdominal GI/Abdominal exam: Present: normal bowel sounds, tenderness (Upper quadrant, mostly left upper quadrant), soft. Absent: ascites, distended, mass, organomegaly - Extremities Exam Extremities exam: Present: normal inspection, full ROM - Back Exam Back exam: Present: normal inspection - Neurological Exam Neurological exam: Present: alert, oriented X3 - Psychiatric Psychiatric exam: Present: normal affect, normal mood - Skin Skin exam: Present: normal color, warm, dry Results - Labs CBC & BMP: 01/08/17 04:17 01/08/17 04:17 Lab Results: I have reviewed the past 24 hour labs
--- NOTE | 2017-01-08 10:29 | Hospitalist Progress Note ---
Assessment and Plan - Time spent with patient Time spent with patient: Greater than 30 minutes (1) Pancreatitis Status: Acute Assessment and plan: Continue fluids. Defer change in management to GI. Appreciate their assistance. Current Visit: Yes Qualifiers: Chronicity: acute Pancreatitis type: unspecified pancreatitis type Acute pancreatitis complication: unspecified Qualified Code(s): K85.90 - Acute pancreatitis without necrosis or infection, unspecified Hospitalist: Subjective Interval history: Reports improving symptoms of nausea, and abdominal pain however is still requiring narcotics on the clock. Exam - Constitutional Vitals: Period Temp Pulse Resp BP Sys/Mathews Pulse Ox Last 24 Hr 97.1 F-98.7 F 90-106 17-20 131-142/91-95 95-98 General appearance: no acute distress - Head Head exam: Present: normocephalic, atraumatic - Eye Eye exam: Present: EOMI Pupils: Present: LARISA - ENT ENT exam: Present: normal exam - Neck Neck exam: Present: normal inspection - Respiratory Respiratory exam: Present: clear to auscultation bilaterally. Absent: rhonchi, wheezes - Cardiovascular Cardiovascular exam: Present: regular rate and rhythm. Absent: gallop, rubs, systolic murmur - GI/Abdominal GI/Abdominal exam: Present: normal bowel sounds, soft. Absent: distended, firm , guarding, tenderness, rebound - Extremities Exam Extremities exam: Present: normal inspection. Absent: calf tenderness, edema Results - Labs CBC & BMP: 01/08/17 04:17 01/08/17 04:17 Lab Results: I have reviewed the past 24 hour labs
[2017-01-09] MEDS: MEPERIDINE 25 MG/1 ML VIAL IV PRN ×2 (03:55→08:44)
[2017-01-09] MEDS: SODIUM CHLORIDE 0.45% 1,000 ML IV SCH ×2 (03:55→08:43)
[2017-01-09] MEDS: HEPARIN 5,000 UNIT/1 ML VIAL SUBCUT SCH (05:51)
[2017-01-09] MEDS: amLODIPine 5 MG TABLET PO SCH (08:43)
[2017-01-09] MEDS: PANTOPRAZOLE 40 MG VIAL IV SCH (08:43)
--- NOTE | 2017-01-09 11:36 | Discharge Summary ---
Hospital Course - Hospital Course Hospital Course: Mr. Yadav was transferred from an outside facility for potential gastric mass and abdominal pain. Oncology was consulted for findings in the outside CT and repeated the CT of his abdomen and pelvis which revealed pancreatitis and a pseudocyst. They signed off. Patient was kept n.p.o. and initiated on IV fluids with serial monitoring of his lipase. GI was consulted. Lipid panel and right upper quadrant ultrasound were unremarkable. Lipase improved from 1300 on admission 320 at discharge. Patient was slowly advanced with his diet and has tolerated it very well. His need for pain medications reduced. He was instructed to avoid any smoking if possible was offered nicotine patches which she refused. He was also instructed to avoid any alcoholic consumption and he states he does not do so anyway. By discharge she had met maximum benefit of hospitalization. I spent 38 minutes coordinating this discharge. - Time spent with patient Time with patient DS: Greater than 30 minutes Diagnosis - Discharge Diagnosis (1) Pancreatitis Status: Acute Specialty Discharge - Follow Up or Referrals Follow up with: Stew Peña MD [Physician] - Discharge Plan - Discharge Data Disposition: Disch To Home/Self Care Condition at Discharge: Stable Discharge Diet: advance to your usual diet Activity: resume usual activities as tolerated Hygiene: no restrictions - Discharge Medications Continue amLODIPine [Norvasc] 5 mg PO DAILY #30 tablet - Follow Up or Referral Follow Up: Stew Peña MD [Physician] - - Forms/Instructions Instructions: Pancreatitis ([facility]), Cigarette Smoking and Your Health, Guidance Secretary (GEN) Exam - Constitutional Vitals: Period Temp Pulse Resp BP Sys/Mathews Pulse Ox Last 24 Hr 97.1 F-98.7 F 77-95 18-20 127-154/66-85 97-99 General appearance: normal weight, no acute distress - Head Head exam: Present: normal inspection, normocephalic, atraumatic - Eye Eye exam: Present: EOMI Pupils: Present: LARISA - ENT ENT exam: Present: normal exam - Neck Neck exam: Present: normal inspection - Respiratory Respiratory exam: Present: clear to auscultation bilaterally. Absent: accessory muscle use, prolonged expiratory phase, wheezes - Cardiovascular Cardiovascular exam: Present: regular rate and rhythm. Absent: bradycardia, irregular rhythm, systolic murmur - GI/Abdominal GI/Abdominal exam: Present: normal bowel sounds. Absent: ascites, distended, hypoactive bowel sounds, tenderness - Extremities Exam Extremities exam: Present: normal inspection DS: Provider Date of admission: 01/03/17 19:38 Primary care physician: . No PCP Attending physician on admission: Farrukh Gibbons MD Consults: 01/03/17 19:47 Consult to Physician [CONS] Routine Comment: on-call/CT large abd mass stomach vs pancreas Consulting Provider: Stew Peña Consult to Specialist Group: Gastroenterology When should Consulting Provider be notified: In am Person Notified: ANDREW Date Notified: 01/04/17 Time Notified: 10:59 01/03/17 19:56 Consult to Physician [CONS] Routine Comment: On-call physician/abdominal tumor Consulting Provider: Jimbo Love Consult to Specialist Group: Oncology When should Consulting Provider be notified: In am Person Notified: SHERRY Date Notified: 01/04/17 Time Notified: 08:59 01/03/17 20:48 Consult to Pastoral Services [CONS] Routine Comment: Pastoral Screen: Request Lecturer In Computer Science Visit Pastoral Screen Source of Request: Patient Discharging clinician: Rosana Prakash MD Expected date of discharge: 01/09/17
[2017-01-09 13:02] VITALS: BP 140/80
== END 2017-01-09 12:43 | disposition home or self-care (01) | DRG 439 ==
LOC: EDBD → EDUNIT# → N.ED 16:54 → N.EDINP 19:38 → SUATTDRO 19:38 → N.2E 20:18
PROVIDERS: ADMIT Internal Medicine Infectious Disease; ATTEND Internal Medicine

== ENCOUNTER 2017-09-18 18:24 | Inpatient (IN) ==
[2017-09-18] MEDS ORDERED: ASPIRIN 325 MG TABLET PO STA (18:56)
[2017-09-18] MEDS ORDERED: ASPIRIN 325 MG TABLET ONE (19:01)
[2017-09-18 19:09] LABS: Basophils # 0.1 10*3/uL (0.0-0.2); Basophils % 0.6 % (0.0-0.8); Eosinophils # 0.2 10*3/uL (0.0-0.87); Eosinophils % 1.8 % (0.00-10.9); Hematocrit 48.2 VOL% (42.0-52.0); Hemoglobin 15.8 GM/DL (14.0-18.0); Immature Granulocytes % 0.3 %; Immature Granulocytes Absolute 0.03 #; Lymphocytes # 2.8 10*3/uL (1.4-4.0); Lymphocytes % 26.6 % (21.2-54.2); Mean Corpuscular HGB Conc 32.8 GM/DL (32-36); Mean Corpuscular Hemoglobin 29 PG (27-34); Mean Corpuscular Volume 87.6 FL (87-102); Mean Platelet Volume 10.1 FL (9.6-12.0); Monocytes # 1.2 10*3/uL (0.11-0.8); Neutrophils # 6.3 10*3/uL (1.4-7.4); Neutrophils % 59.7 % (38.7-73.9); Platelet Count 272 T/CUMM (130-400); Red Cell Distribution Width 12.8 % (9.3-17.3); White Blood Count 10.6 T/CUMM (4-12)
[2017-09-18 19:21] LABS: Alanine Aminotransferase 17 U/L (16-61); Albumin 3.4 G/DL (3.4-5.0); Alkaline Phosphatase 76 U/L (45-117); Aspartate Amino Transferase 12 U/L (0-37); Bilirubin,Total < 0.39 MG/DL (0.2-1.0); Blood Urea Nitrogen 16 MG/DL (7-18); Calcium 8.4 MG/DL (8.5-10.1); Glucose 84 MG/DL (74-106); Osmolality,Calculated 282.1 MOS/KG (273-304); Potassium 3.8 MMOL/L (3.5-5.1); Sodium 142 MMOL/L (136-145); Total Protein 6.8 G/DL (6.4-8.3)
[2017-09-18] MEDS ORDERED: PANTOPRAZOLE 40 MG VIAL IV STA (20:45)
[2017-09-18] MEDS ORDERED: AZITHROMYCIN INJ 500 MG in SODIUM CHLORIDE 0.9% 250 ML IV STA (20:45)
[2017-09-18] MEDS ORDERED: AZITHROMYCIN 500 MG VIAL IV ONE (20:52)
[2017-09-18] MEDS ORDERED: PANTOPRAZOLE 40 MG VIAL IV ONE (20:52)
[2017-09-18 21:39] LABS: Troponin I Only 0.043 NG/ML (0.00-0.045)
[2017-09-18] MEDS ORDERED: ALBUTEROL NEB SOLN 5 MG/ML 20 ML/BOTTLE CONT NEB STA (22:14)
[2017-09-18] MEDS ORDERED: cefTRIAXone 1,000 MG in SODIUM CHLORIDE 0.9% 100 ML IV STA (22:14)
[2017-09-18] MEDS ORDERED: cefTRIAXone 1,000 MG VIAL ONE (22:32)
[2017-09-18] MEDS ORDERED: methylPREDNISolone SOD SUC 125 MG/2 ML VIAL IV STA (22:44)
[2017-09-18] MEDS ORDERED: methylPREDNISolone SOD SUC 125 MG/2 ML VIAL ONE (22:47)
[2017-09-19] MEDS ORDERED: ACETAMINOPHEN 325 MG TABLET PO PRN (00:21)
[2017-09-19] MEDS ORDERED: ONDANSETRON 4 MG/2 ML VIAL IV PRN (00:21)
[2017-09-19] MEDS ORDERED: ALBUTEROL/IPRATROPIUM 3 ML NEB RESP TX PRN (00:24)
[2017-09-19] MEDS: SODIUM CHLORIDE 0.9% 1,000 ML IV SCH (02:24)
[2017-09-19] MEDS: ENOXAPARIN 40 MG/0.4 ML SYRINGE SUBCUT SCH ×2 (02:26→20:55)
[2017-09-19 06:21] LABS: Basophils % 0.2 % (0.0-0.8); Hematocrit 48.9 VOL% (42.0-52.0); Hemoglobin 16.1 GM/DL (14.0-18.0); Immature Granulocytes % 0.3 %; Immature Granulocytes Absolute 0.03 #; Lymphocytes # 0.9 10*3/uL (1.4-4.0); Lymphocytes % 8.5 % (21.2-54.2); Mean Corpuscular HGB Conc 32.9 GM/DL (32-36); Mean Corpuscular Hemoglobin 28 PG (27-34); Mean Corpuscular Volume 85.8 FL (87-102); Mean Platelet Volume 9.7 FL (9.6-12.0); Monocytes # 0.1 10*3/uL (0.11-0.8); Monocytes % 0.6 % (1.7-12.7); Neutrophils % 90.4 % (38.7-73.9); Platelet Count 253 T/CUMM (130-400); White Blood Count 11.1 T/CUMM (4-12)
[2017-09-19 06:43] LABS: Calcium 8.4 MG/DL (8.5-10.1); Osmolality,Calculated 288.1 MOS/KG (273-304); Potassium 4.3 MMOL/L (3.5-5.1)
[2017-09-19] MEDS: amLODIPine 5 MG TABLET PO SCH (09:47)
[2017-09-19] MEDS: ASPIRIN EC 81 MG TABLET PO SCH (09:47)
[2017-09-19] MEDS: PANTOPRAZOLE 40 MG TABLET PO SCH (09:47)
[2017-09-19] MEDS: AZITHROMYCIN 250 MG TABLET PO SCH (09:50)
[2017-09-19] MEDS: ALBUTEROL/IPRATROPIUM 3 ML NEB RESP TX SCH ×3 (14:00→23:45)
[2017-09-19] MEDS: OSELTAMIVIR 75 MG CAPSULE PO SCH ×2 (16:43→20:56)
[2017-09-19] MEDS: methylPREDNISolone SOD SUC 40 MG/1 ML VIAL IV SCH ×2 (16:44→20:56)
[2017-09-20 01:26] LABS: Apearance,Urine CLEAR (Clear); Bilirubin,Urine Negative (Negative); Blood, Urine Small mg/dL (Negative); Glucose,Urine (UA) Negative (Negative); Ketones,Urine Negative (Negative); Mucus,Urine Occasional /LPF (Occasional); Nitrite,Urine Negative (Negative); Protein,Urine Negative; RBC,Urine <1 /HPF (0-4); Urine Color Yellow (Yellow); Urine Specific Gravity 1.014 (1.001-1.035); Urine Urobilinogen < 2.0 EU/DL (0.2-1.0)
[2017-09-20] MEDS: SODIUM CHLORIDE 0.9% 1,000 ML IV SCH ×3 (02:26→08:30)
[2017-09-20] MEDS: ALBUTEROL/IPRATROPIUM 3 ML NEB RESP TX SCH ×3 (03:13→11:07)
[2017-09-20] MEDS: methylPREDNISolone SOD SUC 40 MG/1 ML VIAL IV SCH (05:30)
[2017-09-20] MEDS: AZITHROMYCIN 250 MG TABLET PO SCH (09:26)
[2017-09-20] MEDS: ASPIRIN EC 81 MG TABLET PO SCH (09:26)
[2017-09-20] MEDS: PANTOPRAZOLE 40 MG TABLET PO SCH (09:27)
[2017-09-20] MEDS: OSELTAMIVIR 75 MG CAPSULE PO SCH (09:27)
[2017-09-20] MEDS: amLODIPine 5 MG TABLET PO SCH (09:27)
[2017-09-20] MEDS ORDERED: NICOTINE 21 MG/24 HR PATCH TRANSDERM PRN (10:32)
[2017-09-20] MEDS ORDERED: KETOROLAC 10 MG TABLET PO PRN (10:35)
[2017-09-20 17:58] VITALS: BP 137/77
== END 2017-09-20 18:45 | disposition home or self-care (01) | DRG 202 ==
LOC: EDBD → EDUNIT# → N.ED 18:24 → N.EDINP 09-19 00:21 → N.5E 09-19 00:43
PROVIDERS: ADMIT Pediatrics; ATTEND Pediatrics